=== PATIENT | female | born 1965 | race Caucasian/White ===

== ENCOUNTER 2016-12-18 08:02 | Emergency (ER) | payer SELFPAY ==
[~2016-12-18] VITALS: Ht 154.9 cm; Wt 85.2 kg
[~2016-12-18 08:02] MED LIST: ACYCLOVIR200 MG PO; ALLERGY MEDICIN25 M3 PO; BACTRIM,SEPT1 TABLET PO; BENADRYL25 MG PO; BENADRYL50 MG PO; HYDROCHLOROTHIA25 MG PO; LEXAPRO10 MG PO; PEPCID20 MG PO; PHENTERMINE H37.5 MG PO; POTASSIUM-9999 MG PO; PREDNISONE10 MG PO; PREDNISONE50 MG PO; PRILOSEC20 MG PO; PROMETHAZINE HC25 M1 PO; RITALIN10 MG PO; ULTRAM50 MG PO; WELLBUTRIN SR150 MG PO
[2016-12-18 09:40] VITALS: BP 116/60
[2016-12-18] MEDS ORDERED: LINZESS290 MCG PO (09:40)
== END 2016-12-18 09:59 | disposition home or self-care (01) ==
LOC: EME 08:02
DX: S80.02XA Contusion of left knee, initial encounter (principal); M25.562 Pain in left knee
CPT/HCPCS: 73564; 99281; 99283

== ENCOUNTER 2017-07-16 18:01 | Emergency (ER) | payer SELFPAY ==
[~2017-07-16] VITALS: Ht 154.9 cm; Wt 81.9 kg
[~2017-07-16 18:01] MED LIST changes: +LINZESS290 MCG PO
[2017-07-16 18:13] VITALS: BP 120/88
[2017-07-16] MEDS ORDERED: NEURONTIN300 MG PO (19:59)
[2017-07-16] MEDS ORDERED: MEDROL DOSEPAK4 MG PO (19:59)
== END 2017-07-16 20:29 | disposition home or self-care (01) ==
LOC: EME 18:01
DX: M25.572 Pain in left ankle and joints of left foot (principal); M25.561 Pain in right knee; M25.551 Pain in right hip; M79.661 Pain in right lower leg
CPT/HCPCS: 99281; 99284